=== PATIENT | female | born 1995 | race American Indian/Alaskan Native ===

== ENCOUNTER 2018-06-18 17:44 | Emergency (ER) | payer OTHER ==
[2018-06-18 17:50] VITALS: BP 148/63
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
[2018-06-18] MEDS ORDERED: ULTRAM PO ONE (20:11)
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
== END 2018-06-18 20:43 | disposition home or self-care (01) ==
LOC: ED 17:44 → EDBD 17:44 → ED 20:43
DX: S16.1XXA Strain of muscle, fascia and tendon at neck level, initial encounter (principal); S39.012A Strain of muscle, fascia and tendon of lower back, initial encounter; J45.909 Unspecified asthma, uncomplicated; F17.200 Nicotine dependence, unspecified, uncomplicated; V87.7XXA Person injured in collision between other specified motor vehicles (traffic), initial encounter; Y93.89 Activity, other specified; Y92.488 Other paved roadways as the place of occurrence of the external cause; Y99.8 Other external cause status
CPT/HCPCS: 72040; 72100; 99283

== ENCOUNTER 2019-07-10 14:45 | Outpatient (CLI) | payer BC, MEDICAID ==
[2019-07-10 15:59] VITALS: BP 108/53
--- NOTE | 2019-07-10 17:07 | Ultrasound Report ---
Limited OB ultrasound INDICATION: well-being FINDINGS: There is a single intrauterine with cephalic presentation. The amniotic fluid ind ex is normal calculated at 11.7 cm. heart rate is 127 bpm. IMPRESSION: Amniotic fluid index is normal. BIOPHYSICAL PROFILE INDICATION: well-being COMPARISON: None FINDINGS: breathing movement: 2/2 movement: 2/2 posture and tone: 2/2 Qualitative amniotic fluid volume: 2/2 IMPRESSION: Total score for biophysical profile is 8/8 heart rate is 127 bpm Signer Name: Han Bruce MD Signed: 07/10/2019 5:02 PM Workstation Name: [id number]
== END 2019-07-10 16:48 | disposition home or self-care (01) ==
LOC: TRG 14:45
PROVIDERS: ATTEND Obstetrics & Gynecology
DX: O47.1 False labor at or after 37 completed weeks of gestation (principal); Z3A.37 37 weeks gestation of pregnancy
CPT/HCPCS: 59025; 76815; 76819